=== PATIENT | male | born 1960 | race Caucasian/White ===

== ENCOUNTER 2017-06-25 13:53 | Emergency (ER) | payer OTHER ==
[~2017-06-25 13:53] MED LIST: ALBUTEROL17 GM; ASPIRIN81 M1 PO; BACTRIM DS TABL1 TA1 PO; CELEXA; CIPRO PO; DOLOBID500 MG PO; FLEXERIL PO; FLEXERIL10 M1 PO; FLEXERIL10 MG PO; IBUPROFEN PO; IBUPROFEN800 MG PO; LORTAB 101 TAB 10/5 PO; MEDROL PO; NAPROXEN PO; NEURONTIN PO; NEURONTIN100 MG; NEURONTIN800 MG PO; NORCO 5/325 TAB1 TAB PO; NORVASC PO; PHENERGAN PO; SEROQUEL XR50 MG PO; SEROQUEL300 MG; SKELAXIN PO; VICODIN 5/500 T1 TAB PO; VOLTAREN75 MG PO
[2017-06-25] MEDS ORDERED: FLEXERIL10 MG (14:09)
== END 2017-06-25 15:28 | disposition home or self-care (01) ==
LOC: SED 13:53
DX: B34.9 Viral infection, unspecified (principal); F17.200 Nicotine dependence, unspecified, uncomplicated; K21.9 Gastro-esophageal reflux disease without esophagitis
CPT/HCPCS: 87651; 99283